=== PATIENT | male | born 1985 | race Caucasian/White ===

== ENCOUNTER 2022-02-21 12:17 | Outpatient (CLI) | payer BC, SELFPAY ==
[2022-02-21 13:33] LABS: Basophils % 0.3 %; Eosinophils # 0.1 10^3/uL (0.0-0.8); Eosinophils % 1.2 %; Hematocrit 45.5 % (42.0-52.0); Hemoglobin 16.4 g/dL (11.7-16.6); Lymphocytes # 1.5 10^3/uL (0.8-4.8); Mean Corpuscular Volume 91.5 fl (80-94); Mean Platelet Volume 12.3 fL (7.4-10.4); Monocytes # 0.5 10^3/uL (0.2-0.9); Monocytes % 7.9 %; Neutrophils # 3.81 10^3/uL (1.8-7.7); Neutrophils % 64.3 %; Nucleated Red Blood Cells % 0 %; Platelet Count 215 10^3/cmm (130-400); Red Blood Count 4.97 10^6/uL (4.1-5.3); Red Cell Distribution Width 11.8 % (12.1-15.1); White Blood Count 5.9 10^3/uL (4.0-10.0)
[2022-02-21 14:12] LABS: Alanine Aminotransferase 27 U/L (0-41); Albumin Level 4.5 g/dL (3.5-5.2); Alkaline Phosphatase 63 IU/L (40-130); Anion Gap 13.6 (5-19); Aspartate Amino Transferase 21 U/L (0-40); Blood Urea Nitrogen 7 mg/dL (6-20); Calcium 9.4 mg/dL (8.5-10.5); Carbon Dioxide 28 mmol/L (22-29); Chloride 102 mmol/L (98-107); Globulin 2.8 g/dL (1.3-4.6); Glucose 93 mg/dL (65-115); Osmolality Calculated 288 mOsm/kg (285-295); Potassium 3.6 mmol/L (3.5-5.1); Sodium 140 mmol/L (136-145); Total Bilirubin 1.7 mg/dL (0.15-1.2); Total Protein 7.3 g/dL (6.6-8.7)
[2022-02-23 16:27] LABS: Allergen Beef Igg 20.7 mcg/mL (<2.0); Allergen Cacao (Chocolate) Igg 5.2 mcg/mL (<2.0); Allergen Chicken Meat Igg 2.2 mcg/mL (<2.0); Allergen Orange Igg 5.2 mcg/mL (<2.0); Allergen Peanut Igg 10.8 mcg/mL (<2.0); Barley (F6) Igg 29.2 mcg/mL (<2.0); Yeast (F45) Igg 6.3 mcg/mL (<2.0)
[2022-02-25 15:52] LABS: Egg White (F1) Ige 1.63 kU/L; Egg White Class 2; Immunoglobulin E 417 kU/L (<OR=114); Maize Corn Class 0/1; Maize/Corn (F8) Ige 0.24 kU/L; Oat (F7) Ige 0.38 kU/L; Oat Class 1; Pork Class 0/1; Potato (F35) Ige 0.11 kU/L; Potato Class 0/1; Rye (F5) Ige 1.87 kU/L; Rye Class 2; Soybean (F14) Ige <0.10 kU/L; Soybean Class 0; Tomato (F25) Ige <0.10 kU/L; Tomato Class 0; Wheat (F4) Ige 4.24 kU/L; Wheat Class 3
== END 2022-02-21 12:18 | disposition home or self-care (01) ==
LOC: LAB 12:19
PROVIDERS: Visit Provider Family Medicine
DX: R10.84 Generalized abdominal pain (principal); K21.9 Gastro-esophageal reflux disease without esophagitis
CPT/HCPCS: 36415; 80053; 85025; 86003; 86140

== ENCOUNTER 2022-04-16 08:08 | Outpatient (CLI) | payer SELFPAY ==
--- NOTE | 2022-04-16 08:13 | US_ITS ---
WS: [id number] Complete ABDOMINAL ULTRASOUND HISTORY: GENERALIZED ABDOMINAL PAIN COMPARISON: None available. Liver: 15.3 cm in length. Small diaphragmatic nodule measures 2.2 x 1.2 x 1.4 cm. This abuts the caps ule of the liver and involves the diaphragm. Otherwise the liver is negative. Portal Vein: Normal hepatopetal flow with monophasic waveform. Gallbladder: Normally distended with no gallstones, wall thickening or pericholecystic fluid. Gallbladder wall thickness: 0.2 cm. Pancreas: Normal size and echogenicity. CBD: 0.5 cm. Right kidney: 11.9 cm x 5.1 cm x 5.1 cm. No mass, cortical thickening or hydronephrosis. Left kidney: 11.5 cm x 5.5 cm x 6.2 cm. No mass, cortical thickening or hydronephrosis. Spleen: Normal size and echogenicity. Abdominal aorta and IVC are within normal limits. No ascites. US/US abdomen complete* [id number] IMPRESSION: 1. Solid nodule along the diaphragmatic surface and capsule involving the RIGH T lobe of the liver measuring 2.2 x 1.2 x 1.4 cm. Recommend follow-up CT evalua tion. CT evaluation should include the chest and abdomen with contrast. 2. Otherwise this examination is negative.
== END 2022-04-16 08:09 | disposition home or self-care (01) ==
LOC: RAD 08:08
PROVIDERS: PCP Family Medicine; Visit Provider Family Medicine
DX: R10.84 Generalized abdominal pain (principal); K76.89 Other specified diseases of liver
CPT/HCPCS: 76700